=== PATIENT | female | born 1960 | race Caucasian/White ===

== ENCOUNTER 2018-09-27 18:44 | Emergency (ER) | payer OTHER ==
[~2018-09-27] VITALS: Ht 162.6 cm; Wt 59.0 kg
[2018-09-27] MEDS ORDERED: ONDANSETRON 2MG/ML, 2ML IVPush ONE (19:30)
[2018-09-27] MEDS ORDERED: MORPHINE SULFATE 4 MG/ML, 1ML IVPush PRN (19:30)
[2018-09-27] MEDS ORDERED: SODIUM CHLORIDE FLUSH 10ML SYR IVF ONE (19:30)
[2018-09-27 20:31] LABS: BASOPHILS % (AUTO) 1 % (0-1); EOSINOPHILS # (AUTO) 0.03 x10^3/uL (0-0.4); EOSINOPHILS % (AUTO) 0 % (1-7); LYMPHOCYTES # (AUTO) 2.26 x10^3/uL (1-3.4); LYMPHOCYTES % (AUTO) 20 % (22-44); MD NO; MEAN CORPUSCULAR HEMOGLOBIN 28.7 pg (27.0-34.8); MEAN CORPUSCULAR HGB CONC 32.4 g/dL (32.4-35.8); MEAN CORPUSCULAR VOLUME 88.3 fL (80-100); MEAN PLATELET VOLUME 9.7 fL (7.4-10.4); MONOCYTES # (AUTO) 0.65 x10^3/uL (0.2-0.8); MONOCYTES % (AUTO) 6 % (2-9); NEUTROPHILS # (AUTO) 8.11 x10^3/uL (1.8-6.8); NEUTROPHILS % (AUTO) 73 % (42-75); PLATELET COUNT 268 x10^3/uL (130-400); RED BLOOD COUNT 5.32 x10^6/uL (3.82-5.3); RED CELL DISTRIBUTION WIDTH 15.7 % (9.6-15.2)
[2018-09-27 20:43] LABS: ALBUMIN 4.3 g/dL (3.4-5.0); ANION GAP 12 mmol/L (5-15); CALCIUM 9.7 mg/dL (8.5-10.1); CHLORIDE 106 mmol/L (98-107)
[2018-09-27 20:46] LABS: ALANINE AMINOTRANSFERASE 20 U/L (12-78); ALKALINE PHOSPHATASE 107 U/L (45-117); TOTAL PROTEIN 8.3 g/dL (6.4-8.2)
[2018-09-27] MEDS ORDERED: ONDANSETRON 2MG/ML, 2ML ONE (20:51)
[2018-09-27] MEDS ORDERED: MORPHINE SULFATE 4 MG/ML, 1ML ONE (20:52)
--- NOTE | 2018-09-27 21:12 | NUR ---
2 RN completed straight cath with urine collection per protocol; patient requested after cath straight catherization by RN; cath complete by Aditi phelan.
[2018-09-27 21:23] LABS: CULTURE INDICATED? YES; MICROSCOPIC INDICATED
[2018-09-27] MEDS ORDERED: CIPROFLOXACIN 500 MG TABLET ONE (21:46)
[2018-09-27 21:48] VITALS: BP 142/59
--- NOTE | 2018-09-27 21:48 | NUR ---
Pt medicated per may. Nadn. Given water per request and po social media specialist. Call light within reach. Awaiting md recheck.
[2018-09-27] MEDS ORDERED: HYDROcodone/APAP 5/325 TABLET ONE (21:55)
--- NOTE | 2018-09-27 21:58 | NUR ---
Pain medication given per provider order.
[2018-09-27] MEDS ORDERED: HYDROcodone/APAP 5/325 TABLET PO ONE (22:00)
[2018-09-27] MEDS ORDERED: CIPROFLOXACIN 500 MG TABLET PO ONE (22:00)
== END 2018-09-27 22:09 | disposition home or self-care (01) ==
LOC: ED 21:03
DX: N30.00 Acute cystitis without hematuria (principal); R19.7 Diarrhea, unspecified; R51 Headache; R94.4 Abnormal results of kidney function studies; I10 Essential (primary) hypertension; E11.9 Type 2 diabetes mellitus without complications
CPT/HCPCS: 36415; 74176; 80053; 81001; 83690; 85025; 87077; 87086; 87186; 96374; 96375; 99284; J2270; J2405

== ENCOUNTER 2018-09-29 16:49 | Emergency (ER) | payer OTHER ==
[~2018-09-29] VITALS: Ht 162.6 cm; Wt 59.5 kg
[2018-09-29] MEDS ORDERED: MORPHINE SULFATE 4 MG/ML, 1ML IVPush PRN (17:30)
[2018-09-29] MEDS ORDERED: ONDANSETRON 2MG/ML, 2ML IVPush ONE (17:30)
[2018-09-29] MEDS ORDERED: SODIUM CHLORIDE FLUSH 10ML SYR IVF ONE (17:30)
--- NOTE | 2018-09-29 17:36 | NUR ---
Note undone in EDM - 09/29/18 at 1742 by JERRY Patient into room onto [facility]; connected to monitor; no reports of respiratory distress; skin is warm pink and dry. Patient reports worsening pain since ED discharge Sunday night. Patient is worried about extensive history. VSS, awaiting labs, radiology
--- NOTE | 2018-09-29 17:42 | NUR ---
Patient into room onto [facility]; connected to monitor; no reports of respiratory distress; skin is warm pink and dry. Patient admitted sunday for 3 days of pain in abdomen. Patient reports worsening pain in rlq since ED discharge Sunday night 12/19. Patient is worried about extensive history which includes pancreas transplant. VSS, awaiting labs, radiology
[2018-09-29 18:12] LABS: INTERNATIONAL NORMALIZED RATIO 0.99 (0.93-1.1); PROTHROMBIN TIME 10.4 Seconds (9.6-11.5)
[2018-09-29 18:13] LABS: ALANINE AMINOTRANSFERASE 74 U/L (12-78); ALBUMIN 3.9 g/dL (3.4-5.0); ANION GAP 9 mmol/L (5-15); CALCIUM 9.1 mg/dL (8.5-10.1); CHLORIDE 106 mmol/L (98-107); CREATININE 1.92 mg/dL (0.55-1.02)
[2018-09-29 18:15] LABS: ALKALINE PHOSPHATASE 184 U/L (45-117); BILIRUBIN,TOTAL 0.5 mg/dL (0.2-1.0); TOTAL PROTEIN 7.5 g/dL (6.4-8.2)
[2018-09-29 18:23] LABS: BASOPHILS # (AUTO) 0.03 x10^3/uL (0-0.1); BASOPHILS % (AUTO) 0 % (0-1); EOSINOPHILS # (AUTO) 0.19 x10^3/uL (0-0.4); EOSINOPHILS % (AUTO) 2 % (1-7); LYMPHOCYTES # (AUTO) 1.62 x10^3/uL (1-3.4); LYMPHOCYTES % (AUTO) 18 % (22-44); MEAN CORPUSCULAR HEMOGLOBIN 28.9 pg (27.0-34.8); MEAN CORPUSCULAR HGB CONC 32.6 g/dL (32.4-35.8); MEAN CORPUSCULAR VOLUME 88.7 fL (80-100); MEAN PLATELET VOLUME 10.1 fL (7.4-10.4); MONOCYTES # (AUTO) 0.46 x10^3/uL (0.2-0.8); MONOCYTES % (AUTO) 5 % (2-9); NEUTROPHILS # (AUTO) 6.59 x10^3/uL (1.8-6.8); NEUTROPHILS % (AUTO) 74 % (42-75); PLATELET COUNT 151 x10^3/uL (130-400); RED BLOOD COUNT 4.75 x10^6/uL (3.82-5.3); RED CELL DISTRIBUTION WIDTH 15.9 % (9.6-15.2)
[2018-09-29] MEDS ORDERED: ONDANSETRON ODT 8 MG ONE (18:27)
[2018-09-29] MEDS ORDERED: HYDROcodone/APAP 5/325 TABLET ONE (18:27)
[2018-09-29] MEDS ORDERED: ONDANSETRON ODT 8 MG PO ONE (18:30)
[2018-09-29] MEDS ORDERED: HYDROcodone/APAP 5/325 TABLET PO ONE (18:30)
[2018-09-29 18:34] LABS: MD SCAN
--- NOTE | 2018-09-29 18:39 | NUR ---
Dr. Shaikh to bs to update on poc. pt resting in room. vss. medications changed to po per md d/t inability to start iv line. plan for 1st dose abx here and observe prior to dc home.
[2018-09-29] MEDS ORDERED: CEFDINIR 300 MG CAPSULE PO ONE (19:00)
--- NOTE | 2018-09-29 19:03 | NUR ---
BREAK RN FOR PRIMARY RN'S DIMITRI. REPORT RECEIVED. PT GIVEN PO CHALLENGE PER DR. SAGASTUME, TOLERATING PO FLUIDS WELL, DENIES NAUSEA. NO EMESIS NOTED OR REPORTED. PT REPORTS "I STILL HAVE 9/10 PAIN IN MY RIGHT SIDE AND HEAD. DISCUSSED WITH DR. SAGASTUME, AWARE, NO NEW ORDERS RECEIVED. VSS. CALL LIGHT IN REACH. DENIES NEED TO USE RESTROOM "I WENT WITH THE OTHER NURSE JUST A BIT AGO."
--- NOTE | 2018-09-29 19:12 | NUR ---
Received report; assumed patient care vss.
[2018-09-29] MEDS ORDERED: CEFDINIR 300 MG CAPSULE ONE (19:14)
--- NOTE | 2018-09-29 19:14 | NUR ---
REPORT AND CARE BACK TO PRIMARY RN'S RILEY.
--- NOTE | 2018-09-29 19:19 | NUR ---
Patient reports she has tolerated liquid (8 oz;) administered medication per md order; patient swallowed with ease. Monitoring po tolerance.
--- NOTE | 2018-09-29 19:56 | NUR ---
Informed patient that providers feel she is appropriate for discharge; patient agreeable to discharge. Removed from monitor and will discharge once dressed.
[2018-09-29 20:02] VITALS: BP 147/74
== END 2018-09-29 20:07 | disposition home or self-care (01) ==
LOC: ED 17:55
DX: N30.00 Acute cystitis without hematuria (principal); R10.32 Left lower quadrant pain; R10.31 Right lower quadrant pain; R10.30 Lower abdominal pain, unspecified; I10 Essential (primary) hypertension; E78.5 Hyperlipidemia, unspecified; Z90.49 Acquired absence of other specified parts of digestive tract; Z90.710 Acquired absence of both cervix and uterus; F17.200 Nicotine dependence, unspecified, uncomplicated
CPT/HCPCS: 36415; 74176; 80053; 83690; 85025; 85610; 85730; 99284; Q0162

== ENCOUNTER 2018-10-03 06:09 | Inpatient (IN) | payer OTHER ==
[~2018-10-03] VITALS: Ht 162.6 cm; Wt 59.4 kg
[2018-10-07 13:10] VITALS: BP 108/63
== END 2018-10-07 14:05 | disposition home or self-care (01) | DRG 690 ==
LOC: ED 07:31 → EDIP 09:27 → 4NOR 11:01
PROVIDERS: ADMIT Internal Medicine; ATTEND Internal Medicine
DX: N39.0 Urinary tract infection, site not specified (principal); Z94.0 Kidney transplant status; Z94.83 Pancreas transplant status; B95.2 Enterococcus as the cause of diseases classified elsewhere; E11.22 Type 2 diabetes mellitus with diabetic chronic kidney disease; F17.210 Nicotine dependence, cigarettes, uncomplicated; Z88.2 Allergy status to sulfonamides; Z88.8 Allergy status to other drugs, medicaments and biological substances; F41.9 Anxiety disorder, unspecified; I12.9 Hypertensive chronic kidney disease with stage 1 through stage 4 chronic kidney disease, or unspecified chronic kidney disease; K21.9 Gastro-esophageal reflux disease without esophagitis; N18.3 Chronic kidney disease, stage 3 (moderate); N31.9 Neuromuscular dysfunction of bladder, unspecified; Z16.21 Resistance to vancomycin; Z79.899 Other long term (current) drug therapy; Z88.0 Allergy status to penicillin; Z88.1 Allergy status to other antibiotic agents; Z90.711 Acquired absence of uterus with remaining cervical stump; Z95.0 Presence of cardiac pacemaker
CPT/HCPCS: 36415; 74018; 76700; 80053; 80061; 81001; 83036; 83605; 83735; 84439; 84443; 85025; 87040; 87077; 87086; 87186; 96365; 96375; G0378; J0696; J1335; J1644; J2020; J2405; J7507; J7517; Q0162; J2270; J7030

== ENCOUNTER 2018-10-08 20:11 | Emergency (ER) | payer OTHER ==
[~2018-10-08] VITALS: Ht 162.6 cm; Wt 68.0 kg
[~2018-10-08 20:11] MED LIST: AMLO10TA8 PO; BUSP15TA PO; CITA40TA12 PO; LINE600T2 PO; MIRTAZAPINE; MYCO250C PO; OMEP20TA62 PO; SEROQUEL; SODI650T PO; TACR1CAP4 PO
--- NOTE | 2018-10-08 21:01 | NUR ---
ED- [facility] [phone]
[2018-10-08] MEDS ORDERED: ACETAMINOPHEN 325 MG TABLET ONE (21:53)
[2018-10-08] MEDS ORDERED: ACETAMINOPHEN 325 MG TABLET PO ONE (22:00)
--- NOTE | 2018-10-08 22:00 | NUR ---
REPORT FROM CORIE REHMAN. PT TO CT.
[2018-10-08 22:30] VITALS: BP 127/62
--- NOTE | 2018-10-08 22:32 | NUR ---
FLOAT RN: PT RESTING IN ROOM. VS STABLE. NO ACUTE DISTRESS NOTED. CALL LIGHT IN PLACE. WILL CONTINUE TO MONITOR WHILE PRIMARY RN IS ON BREAK.
--- NOTE | 2018-10-08 22:57 | NUR ---
ATTEMPTED TO CALL FRIEND ED FOR A RIDE, NO ANSWER. UNABLE TO LEAVE MESSAGE.
--- NOTE | 2018-10-08 23:00 | NUR ---
REPORT GIVEN TO CORIE PRETTY
--- NOTE | 2018-10-08 23:05 | NUR ---
SPOKE W/ FRIEND ED, SHE WILL COME SWATCH CUTTER PT.
[2018-10-21] MEDS ORDERED: MERO500V3 IVPB (16:05)
[2018-10-27] MEDS ORDERED: LINE600T2 PO (12:10)
[2018-10-27] MEDS ORDERED: POTA20TA14 PO (12:13)
== END 2018-10-09 00:18 | disposition home or self-care (01) ==
LOC: ED 21:28
DX: S06.0X9A Concussion with loss of consciousness of unspecified duration, initial encounter (principal); E78.5 Hyperlipidemia, unspecified; E11.9 Type 2 diabetes mellitus without complications; I10 Essential (primary) hypertension; W07.XXXA Fall from chair, initial encounter; Y93.89 Activity, other specified; Y92.511 Restaurant or cafe as the place of occurrence of the external cause; Y99.8 Other external cause status
CPT/HCPCS: 36415; 70450; 80307; 99284

== ENCOUNTER 2018-10-10 14:20 | Emergency (ER) | payer OTHER ==
[~2018-10-10] VITALS: Ht 162.6 cm; Wt 53.0 kg
[2018-10-10 17:50] VITALS: BP 128/64
== END 2018-10-10 18:04 | disposition home or self-care (01) ==
LOC: ED 17:20
DX: R10.30 Lower abdominal pain, unspecified (principal); R19.7 Diarrhea, unspecified; R11.2 Nausea with vomiting, unspecified; I10 Essential (primary) hypertension; E78.5 Hyperlipidemia, unspecified; E11.9 Type 2 diabetes mellitus without complications; F17.200 Nicotine dependence, unspecified, uncomplicated; Z98.890 Other specified postprocedural states; Z95.0 Presence of cardiac pacemaker; Z90.89 Acquired absence of other organs; Z90.49 Acquired absence of other specified parts of digestive tract; Z90.710 Acquired absence of both cervix and uterus
CPT/HCPCS: 36415; 74176; 76830; 80053; 81001; 83605; 83690; 85025; 87077; 87086; 87186; 96361; 96374; 96375; 96376; 99284; J1200; J2270; J2765; J7030

== ENCOUNTER 2018-10-11 22:04 | Emergency (ER) | payer OTHER ==
[~2018-10-11] VITALS: Ht 162.6 cm; Wt 58.9 kg
[2018-10-11] MEDS ORDERED: CEFDINIR 300 MG CAPSULE PO ONE (23:30)
[2018-10-11] MEDS ORDERED: CEFDINIR 300 MG CAPSULE ONE (23:38)
[2018-10-11 23:46] VITALS: BP 133/61
[2018-10-21] MEDS ORDERED: MERO500V3 IVPB (16:05)
[2018-10-27] MEDS ORDERED: LINE600T2 PO (12:10)
[2018-10-27] MEDS ORDERED: POTA20TA14 PO (12:13)
== END 2018-10-11 23:45 | disposition home or self-care (01) ==
LOC: ED 22:37
DX: N30.00 Acute cystitis without hematuria (principal); E11.22 Type 2 diabetes mellitus with diabetic chronic kidney disease; I12.9 Hypertensive chronic kidney disease with stage 1 through stage 4 chronic kidney disease, or unspecified chronic kidney disease; N18.3 Chronic kidney disease, stage 3 (moderate); F17.200 Nicotine dependence, unspecified, uncomplicated; E78.5 Hyperlipidemia, unspecified; Z72.9 Problem related to lifestyle, unspecified; Z90.49 Acquired absence of other specified parts of digestive tract; Z90.710 Acquired absence of both cervix and uterus; Z95.0 Presence of cardiac pacemaker; Z94.0 Kidney transplant status
CPT/HCPCS: 99284

== ENCOUNTER 2018-10-14 14:05 | Inpatient (IN) | payer BC, OTHER ==
[~2018-10-14] VITALS: Ht 162.6 cm; Wt 61.2 kg
[2018-10-22 07:57] VITALS: BP 120/73
== END 2018-10-22 09:18 | disposition home or self-care (01) | DRG 698 ==
LOC: ED 15:47 → EDIP 15:55 → 3NE 16:23
PROVIDERS: ADMIT Internal Medicine; ATTEND Internal Medicine
PROC: 0T9B70Z Drainage of Bladder with Drainage Device, Via Natural or Artificial Opening (ICD-10-PCS; principal; 2018-10-14)
PROC: 05H533Z Insertion of Infusion Device into Right Subclavian Vein, Percutaneous Approach (ICD-10-PCS; 2018-10-17)
PROC: B5161ZA Fluoroscopy of Right Subclavian Vein using Low Osmolar Contrast, Guidance (ICD-10-PCS; 2018-10-17)
PROC: B546ZZA Ultrasonography of Right Subclavian Vein, Guidance (ICD-10-PCS; 2018-10-17)
DX: T86.19 Other complication of kidney transplant (principal); A41.89 Other specified sepsis; N17.9 Acute kidney failure, unspecified; N39.0 Urinary tract infection, site not specified; Z94.0 Kidney transplant status; E11.22 Type 2 diabetes mellitus with diabetic chronic kidney disease; F17.210 Nicotine dependence, cigarettes, uncomplicated; E87.6 Hypokalemia; F41.9 Anxiety disorder, unspecified; Y83.0 Surgical operation with transplant of whole organ as the cause of abnormal reaction of the patient, or of later complication, without mention of misadventure at the time of the procedure; I12.9 Hypertensive chronic kidney disease with stage 1 through stage 4 chronic kidney disease, or unspecified chronic kidney disease; N18.3 Chronic kidney disease, stage 3 (moderate); N31.9 Neuromuscular dysfunction of bladder, unspecified; K21.9 Gastro-esophageal reflux disease without esophagitis; Z16.12 Extended spectrum beta lactamase (ESBL) resistance; Z16.19 Resistance to other specified beta lactam antibiotics; Z16.24 Resistance to multiple antibiotics; Z95.0 Presence of cardiac pacemaker; Z90.711 Acquired absence of uterus with remaining cervical stump; Z87.440 Personal history of urinary (tract) infections; Z88.8 Allergy status to other drugs, medicaments and biological substances; Z88.2 Allergy status to sulfonamides
CPT/HCPCS: 36415; 36573; 80048; 80053; 81001; 82040; 83605; 83735; 85025; 85651; 86140; 87040; 87077; 87086; 87184; 87186; G0378; J1335; J2185; J7507; J7517; Q9966; C1751; J2270; J7030

== ENCOUNTER 2018-10-23 13:01 | Inpatient (IN) | payer BC ==
[~2018-10-23] VITALS: Ht 162.6 cm; Wt 63.2 kg
[2018-10-24 07:10] VITALS: BP 147/70
== END 2018-10-24 13:50 | disposition home or self-care (01) | DRG 699 ==
LOC: ED 17:23 → EDIP 17:24 → ED 17:25 → 4NOR 21:35
PROVIDERS: ADMIT Internal Medicine; ATTEND Internal Medicine
PROC: 0TCB8ZZ Extirpation of Matter from Bladder, Via Natural or Artificial Opening Endoscopic (ICD-10-PCS; principal; 2018-10-23)
DX: T19.1XXA Foreign body in bladder, initial encounter (principal); Z94.83 Pancreas transplant status; Z94.0 Kidney transplant status; N39.0 Urinary tract infection, site not specified; N31.9 Neuromuscular dysfunction of bladder, unspecified; N18.3 Chronic kidney disease, stage 3 (moderate); I12.9 Hypertensive chronic kidney disease with stage 1 through stage 4 chronic kidney disease, or unspecified chronic kidney disease; E78.5 Hyperlipidemia, unspecified; F17.210 Nicotine dependence, cigarettes, uncomplicated; F12.90 Cannabis use, unspecified, uncomplicated; F41.9 Anxiety disorder, unspecified; K21.9 Gastro-esophageal reflux disease without esophagitis; E10.22 Type 1 diabetes mellitus with diabetic chronic kidney disease; X58.XXXA Exposure to other specified factors, initial encounter; B95.2 Enterococcus as the cause of diseases classified elsewhere; Z90.49 Acquired absence of other specified parts of digestive tract; Z95.0 Presence of cardiac pacemaker; Z72.89 Other problems related to lifestyle; Z88.2 Allergy status to sulfonamides; Z88.1 Allergy status to other antibiotic agents; Z79.4 Long term (current) use of insulin; Z90.711 Acquired absence of uterus with remaining cervical stump; Y93.89 Activity, other specified; Y92.89 Other specified places as the place of occurrence of the external cause; Y99.8 Other external cause status; Z79.899 Other long term (current) drug therapy
CPT/HCPCS: 36415; 74176; 80048; 80053; 81001; 81025; 82040; 85025; 87077; 87086; 87186; 88300; 93005; 96365; 96375; 96376; 99291; G0378; J2185; J2250; J2704; J3010; J7507; J7517; C1769; J0330; J2270; J7030

== ENCOUNTER 2018-10-26 12:03 | Inpatient (IN) | payer BC ==
[~2018-10-26] VITALS: Ht 162.6 cm; Wt 59.5 kg
[2018-10-27 13:17] VITALS: BP 137/68
== END 2018-10-27 19:00 | disposition home or self-care (01) | DRG 699 ==
LOC: ED 13:38 → EDIP 15:20 → 3NE 16:30
PROVIDERS: ADMIT Hospitalist; ATTEND Hospitalist
DX: T83.518A Infection and inflammatory reaction due to other urinary catheter, initial encounter (principal); N39.0 Urinary tract infection, site not specified; Z94.0 Kidney transplant status; Z94.83 Pancreas transplant status; B95.2 Enterococcus as the cause of diseases classified elsewhere; E11.22 Type 2 diabetes mellitus with diabetic chronic kidney disease; E78.5 Hyperlipidemia, unspecified; E83.39 Other disorders of phosphorus metabolism; E83.42 Hypomagnesemia; E87.6 Hypokalemia; F17.200 Nicotine dependence, unspecified, uncomplicated; F41.9 Anxiety disorder, unspecified; I12.9 Hypertensive chronic kidney disease with stage 1 through stage 4 chronic kidney disease, or unspecified chronic kidney disease; K21.9 Gastro-esophageal reflux disease without esophagitis; N18.3 Chronic kidney disease, stage 3 (moderate); N31.9 Neuromuscular dysfunction of bladder, unspecified; Y84.6 Urinary catheterization as the cause of abnormal reaction of the patient, or of later complication, without mention of misadventure at the time of the procedure; Y92.89 Other specified places as the place of occurrence of the external cause; Z86.19 Personal history of other infectious and parasitic diseases; Z90.710 Acquired absence of both cervix and uterus; Z95.0 Presence of cardiac pacemaker; Z16.21 Resistance to vancomycin; Z90.49 Acquired absence of other specified parts of digestive tract; Z88.2 Allergy status to sulfonamides; Z88.8 Allergy status to other drugs, medicaments and biological substances
CPT/HCPCS: 36415; 80053; 81001; 83690; 83735; 84100; 84439; 84443; 85025; 87077; 87086; 87186; 87324; 89055; 96374; 96376; G0378; J1650; J2020; J2185; J3475; J7507; J2270; J7030; J7517

== ENCOUNTER 2018-10-28 17:59 | Emergency (ER) | payer BC ==
[~2018-10-28] VITALS: Ht 162.6 cm; Wt 58.3 kg
[2018-10-28 21:40] VITALS: BP 102/58
== END 2018-10-28 22:31 | disposition home or self-care (01) ==
LOC: ED 20:49
DX: N39.0 Urinary tract infection, site not specified (principal); G89.29 Other chronic pain; I10 Essential (primary) hypertension; E11.9 Type 2 diabetes mellitus without complications; E78.5 Hyperlipidemia, unspecified; F17.200 Nicotine dependence, unspecified, uncomplicated; Z90.89 Acquired absence of other organs; Z90.49 Acquired absence of other specified parts of digestive tract; Z90.710 Acquired absence of both cervix and uterus; Z95.5 Presence of coronary angioplasty implant and graft
CPT/HCPCS: 36415; 80053; 80307; 85025; 99283

== ENCOUNTER 2018-10-29 19:35 | Emergency (ER) | payer BC ==
[~2018-10-29] VITALS: Ht 162.6 cm; Wt 57.7 kg
[2018-10-29 19:39] VITALS: BP 104/70
== END 2018-10-29 22:23 | disposition home or self-care (01) ==
LOC: ED 22:21
DX: F33.9 Major depressive disorder, recurrent, unspecified (principal); F41.1 Generalized anxiety disorder; I10 Essential (primary) hypertension; F17.200 Nicotine dependence, unspecified, uncomplicated; E11.9 Type 2 diabetes mellitus without complications; Z90.49 Acquired absence of other specified parts of digestive tract; Z90.710 Acquired absence of both cervix and uterus
CPT/HCPCS: 99284; Q0177